=== PATIENT | female | born 1955 | race Caucasian/White ===

== ENCOUNTER 2022-11-01 00:08 | Inpatient (IN) ==
[2022-11-01] MEDS ORDERED: oxyCODONE/Acetamin 5/325 mg TAB PO ONE (00:42)
[2022-11-01 01:50] LABS: ABS Basophils 0.1 10^3/uL (0.0-0.1); ABS Lymphocytes 1.7 10^3/uL (1.0-4.8); ABS Monocytes 0.9 10^3/uL (0.0-0.9); ABS Nucleated RBC 0.01 10^3/ul; Eosinophil % 0.2 %; Hematocrit 43.1 % (35-45); Lymphocyte % 8.2 %; Mean Corpuscular Hemoglobin 29.2 pg (27-33); Mean Corpuscular Hgb Conc 34.7 g/dL (31-36); Mean Corpuscular Volume 84.1 fL (80-97); Mean Platelet Volume 7.4 fL (7.5-11.2); Platelet Count 265 10^3/uL (150-450); Red Blood Count 5.13 10^6/uL (3.63-4.92); Red Cell Distribution Width 13.7 % (12-17); White Blood Count 20.7 10^3/uL (3.8-11.8)
[2022-11-01 02:16] LABS: Albumin 4.3 g/dL (3.2-5.2); Albumin/Globulin Ratio 1.4 (1-3); Calcium 9.9 mg/dL (8.6-10.3); Creatinine, Serum 0.6 mg/dL (0.51-0.95); Globulin 3.1 g/dL (2-4); Potassium 3.5 mmol/L (3.5-5.0); Total Bilirubin 0.5 mg/dL (0.2-1.0); Total Protein 7.4 g/dL (6.4-8.9); eGFR CKD-EPI 99.5 (>60)
[2022-11-01] MEDS ORDERED: Morphine 4 MG/ML VIAL (1 ml) IV ONE (02:26)
[2022-11-01] MEDS ORDERED: Senna TAB 8.6 mg TAB PO PRN (02:50)
[2022-11-01] MEDS ORDERED: Magnesium Hydroxide LIQ 30 ML UDC PO PRN (02:50)
[2022-11-01 03:03] LABS: C Reactive Protein 1.61 mg/L (<8.01)
[2022-11-01 07:14] LABS: ABS Basophils 0.1 10^3/uL (0.0-0.1); ABS Lymphocytes 2.3 10^3/uL (1.0-4.8); ABS Monocytes 0.8 10^3/uL (0.0-0.9); ABS Neutrophils 10.3 10^3/uL (1.5-7.6); ABS Nucleated RBC 0.01 10^3/ul; Eosinophil % 0.1 %; Hematocrit 41.2 % (35-45); Hemoglobin 13.9 g/dL (11.5-14.3); Mean Corpuscular Hemoglobin 28.6 pg (27-33); Mean Corpuscular Hgb Conc 33.8 g/dL (31-36); Mean Corpuscular Volume 84.4 fL (80-97); Mean Platelet Volume 7.5 fL (7.5-11.2); Nucleated Red Blood Cells % 0.1 /100 WBC (0.0-0.4); Platelet Count 265 10^3/uL (150-450); Red Blood Count 4.88 10^6/uL (3.63-4.92); Red Cell Distribution Width 14.2 % (12-17); White Blood Count 13.5 10^3/uL (3.8-11.8)
[2022-11-01 07:31] LABS: Calcium 9.3 mg/dL (8.6-10.3); Creatinine, Serum 0.55 mg/dL (0.51-0.95); Magnesium 1.9 mg/dL (1.9-2.7); Potassium 3.4 mmol/L (3.5-5.0); eGFR CKD-EPI 101.7 (>60)
[2022-11-01] MEDS ORDERED: Potassium Chlor 20 meq TAB.ER PO ONE (07:54)
[2022-11-01 07:57] LABS: Vitamin D Total 25(OH) 15.5 ng/mL (20-50)
[2022-11-01] MEDS: Enoxaparin 40 MG/0.4 ML SYR SUBCUT SCH (12:20)
[2022-11-02] MEDS: Morphine 2 MG/ML SYRINGE IV PRN ×2 (02:19→22:46)
[2022-11-02 07:38] LABS: ABS Eosinophils 0.1 10^3/uL (0.0-0.5); ABS Lymphocytes 2.1 10^3/uL (1.0-4.8); ABS Monocytes 1.1 10^3/uL (0.0-0.9); ABS Neutrophils 8.7 10^3/uL (1.5-7.6); ABS Nucleated RBC 0.02 10^3/ul; Eosinophil % 0.6 %; Hematocrit 45.8 % (35-45); Hemoglobin 15.7 g/dL (11.5-14.3); Lymphocyte % 17.5 %; Mean Corpuscular Hemoglobin 28.7 pg (27-33); Mean Corpuscular Hgb Conc 34.2 g/dL (31-36); Mean Corpuscular Volume 83.8 fL (80-97); Mean Platelet Volume 7.5 fL (7.5-11.2); Nucleated Red Blood Cells % 0.2 /100 WBC (0.0-0.4); Platelet Count 268 10^3/uL (150-450); Red Blood Count 5.47 10^6/uL (3.63-4.92)
[2022-11-02 07:52] LABS: Calcium 9.8 mg/dL (8.6-10.3); Creatinine, Serum 0.57 mg/dL (0.51-0.95); Potassium 3.4 mmol/L (3.5-5.0); eGFR CKD-EPI 100.8 (>60)
[2022-11-02] MEDS ORDERED: Potassium Chlor 20 meq TAB.ER PO ONE (08:06)
[2022-11-02] MEDS: Enoxaparin 40 MG/0.4 ML SYR SUBCUT SCH (13:01)
[2022-11-03 06:18] LABS: ABS Basophils 0.1 10^3/uL (0.0-0.1); ABS Eosinophils 0.1 10^3/uL (0.0-0.5); ABS Lymphocytes 2.3 10^3/uL (1.0-4.8); ABS Monocytes 1.5 10^3/uL (0.0-0.9); ABS Neutrophils 9.7 10^3/uL (1.5-7.6); ABS Nucleated RBC 0.03 10^3/ul; Eosinophil % 0.6 %; Hemoglobin 16.1 g/dL (11.5-14.3); Mean Corpuscular Hemoglobin 28.7 pg (27-33); Mean Corpuscular Hgb Conc 34.3 g/dL (31-36); Mean Corpuscular Volume 83.8 fL (80-97); Mean Platelet Volume 7.5 fL (7.5-11.2); Nucleated Red Blood Cells % 0.2 /100 WBC (0.0-0.4); Platelet Count 278 10^3/uL (150-450); White Blood Count 13.6 10^3/uL (3.8-11.8)
[2022-11-03 06:29] LABS: Creatinine, Serum 0.67 mg/dL (0.51-0.95); Potassium 3.6 mmol/L (3.5-5.0); eGFR CKD-EPI 96.9 (>60)
[2022-11-03 09:23] LABS: Activated Partial Thrombo Time 27.7 seconds (26.0-38.0); INR 1.14 (0.88-1.18)
[2022-11-03] MEDS: D5W 1/2 NS KCl 20 meq 1000 ml 1,000 ML IV SCH (10:44)
[2022-11-03] MEDS ORDERED: Phenylephrine 40 mcg/mL 10mL (400mcg) SYRINGE ONE (10:55)
[2022-11-03] MEDS ORDERED: ceFAZolin 2 GM PREMIX 2 GM/50 ML BAG ONE (11:01)
[2022-11-03] MEDS ORDERED: Midazolam 2 mg/2 ml VIAL 1 mg/ml 2 ml VIAL (2 mg) ONE (11:31)
[2022-11-03] MEDS ORDERED: fentaNYL 100 mcg/2 ml 50 MCG/ML VIAL ONE (11:31)
[2022-11-03] MEDS ORDERED: Bupivacaine 0.5% W/EPI SDV 10 ML VIAL INJ ONE (11:49)
[2022-11-03] MEDS ORDERED: Rocuronium 50 mg VIAL 10 mg/ml 5 ml VIAL (50 mg) ONE (12:12)
[2022-11-03] MEDS ORDERED: Ketamine HCL 50 mg/ml 10 ml VIAL (500 MG) ONE (12:27)
[2022-11-03] MEDS ORDERED: Vancomycin 1,000 MG VIAL ONE (13:10)
[2022-11-03] MEDS ORDERED: Ondansetron 4 mg VIAL 2 MG/ML 2 ml VIAL ONE (13:19)
[2022-11-03] MEDS ORDERED: Propofol 10 MG/ML 20 ML BTL ONE ×2 (14:07→14:49)
[2022-11-03] MEDS ORDERED: Phenylephrine IV 10 MG/ML 1 ml VIAL ONE (14:18)
[2022-11-03] MEDS ORDERED: Glycopyrrolate IV 0.2 MG/ML 1 ML VIAL ONE (14:30)
[2022-11-03] MEDS: Morphine 2 MG/ML SYRINGE IV PRN (20:11)
[2022-11-03] MEDS: ceFAZolin 1 GM X 3 DOSES POST-OP Q8H (AddVan) IVPB SCH (21:10)
[2022-11-04] MEDS: D5W 1/2 NS KCl 20 meq 1000 ml 1,000 ML IV SCH (00:37)
[2022-11-04] MEDS: ceFAZolin 1 GM X 3 DOSES POST-OP Q8H (AddVan) IVPB SCH ×2 (04:50→13:48)
[2022-11-04] MEDS: Morphine 2 MG/ML SYRINGE IV PRN ×2 (06:09→20:26)
[2022-11-04 06:39] LABS: Calcium 9.3 mg/dL (8.6-10.3); Creatinine, Serum 0.59 mg/dL (0.51-0.95); Potassium 4.3 mmol/L (3.5-5.0)
[2022-11-04 06:52] LABS: Hematocrit 41.5 % (35-45); Hemoglobin 14.1 g/dL (11.5-14.3); Mean Corpuscular Hemoglobin 28.7 pg (27-33); Mean Corpuscular Hgb Conc 33.9 g/dL (31-36); Mean Corpuscular Volume 84.5 fL (80-97); Platelet Count 261 10^3/uL (150-450); Red Blood Count 4.91 10^6/uL (3.63-4.92); Red Cell Distribution Width 13.6 % (12-17); White Blood Count 14.5 10^3/uL (3.8-11.8)
[2022-11-04 06:53] LABS: ABS Lymphocytes 1.6 10^3/uL (1.0-4.8); ABS Neutrophils 10.8 10^3/uL (1.5-7.6); ABS Nucleated RBC 0.02 10^3/ul; Eosinophil % 0.2 %; Lymphocyte % 11.4 %; Nucleated Red Blood Cells % 0.1 /100 WBC (0.0-0.4)
[2022-11-04] MEDS: Enoxaparin 40 MG/0.4 ML SYR SUBCUT SCH (08:55)
[2022-11-04] MEDS: Polyethylene Glycol 3350 17 GM PACKET PO SCH (11:44)
[2022-11-05 06:16] LABS: Hematocrit 39.9 % (35-45); Mean Corpuscular Hemoglobin 29.7 pg (27-33); Mean Corpuscular Hgb Conc 35.2 g/dL (31-36); Mean Corpuscular Volume 84.4 fL (80-97); Platelet Count 266 10^3/uL (150-450); Red Blood Count 4.73 10^6/uL (3.63-4.92); White Blood Count 12.5 10^3/uL (3.8-11.8)
[2022-11-05 06:19] LABS: ABS Eosinophils 0.1 10^3/uL (0.0-0.5); ABS Lymphocytes 2.3 10^3/uL (1.0-4.8); ABS Monocytes 1.7 10^3/uL (0.0-0.9); ABS Neutrophils 8.3 10^3/uL (1.5-7.6); ABS Nucleated RBC 0.02 10^3/ul; Lymphocyte % 18.4 %; Nucleated Red Blood Cells % 0.2 /100 WBC (0.0-0.4)
[2022-11-05 06:35] LABS: Calcium 9.4 mg/dL (8.6-10.3); Creatinine, Serum 0.52 mg/dL (0.51-0.95); Potassium 3.7 mmol/L (3.5-5.0)
[2022-11-05] MEDS: Polyethylene Glycol 3350 17 GM PACKET PO SCH (09:45)
[2022-11-05] MEDS: Enoxaparin 40 MG/0.4 ML SYR SUBCUT SCH (09:46)
[2022-11-05] MEDS: Senna TAB 8.6 mg TAB PO SCH (21:11)
[2022-11-06] MEDS: Enoxaparin 40 MG/0.4 ML SYR SUBCUT SCH (08:39)
[2022-11-06] MEDS: Polyethylene Glycol 3350 17 GM PACKET PO SCH (08:39)
[2022-11-06] MEDS: Senna TAB 8.6 mg TAB PO SCH (21:46)
[2022-11-07] MEDS: Polyethylene Glycol 3350 17 GM PACKET PO SCH (09:09)
[2022-11-07] MEDS: Enoxaparin 40 MG/0.4 ML SYR SUBCUT SCH (09:09)
[2022-11-07] MEDS: Senna TAB 8.6 mg TAB PO SCH (21:46)
[2022-11-08 07:10] LABS: Hematocrit 37.1 % (35-45); Hemoglobin 12.8 g/dL (11.5-14.3); Mean Corpuscular Hemoglobin 28.7 pg (27-33); Mean Corpuscular Hgb Conc 34.7 g/dL (31-36); Mean Corpuscular Volume 82.7 fL (80-97); Mean Platelet Volume 7.2 fL (7.5-11.2); Platelet Count 395 10^3/uL (150-450); Red Blood Count 4.48 10^6/uL (3.63-4.92); Red Cell Distribution Width 13.6 % (12-17); White Blood Count 9.9 10^3/uL (3.8-11.8)
[2022-11-08 07:26] LABS: Calcium 9.7 mg/dL (8.6-10.3); Creatinine, Serum 0.49 mg/dL (0.51-0.95); Potassium 3.7 mmol/L (3.5-5.0); eGFR CKD-EPI 104.5 (>60)
[2022-11-08] MEDS: Enoxaparin 40 MG/0.4 ML SYR SUBCUT SCH (08:06)
[2022-11-08] MEDS: Polyethylene Glycol 3350 17 GM PACKET PO SCH (08:06)
[2022-11-08] MEDS: Senna TAB 8.6 mg TAB PO SCH (22:27)
[2022-11-09] MEDS: Polyethylene Glycol 3350 17 GM PACKET PO SCH (08:58)
[2022-11-09] MEDS: Enoxaparin 40 MG/0.4 ML SYR SUBCUT SCH (08:59)
[2022-11-09 11:49] VITALS: BP 118/79
== END 2022-11-09 14:15 | DRG 301 ==
LOC: ED 00:08 → SUATTDRO 02:41 → EDHOLD 02:41 → SSU 04:35
PROVIDERS: ADMIT Student in an Organized Health Care Education/Training Program; ATTEND Student in an Organized Health Care Education/Training Program

== ENCOUNTER 2022-11-09 12:01 | Inpatient (IN) ==
[~2022-11-09 12:01] MED LIST: Al Hydrox/Mg Hydrox/Simet LIQ 30 ML UDC PO PRN; Enoxaparin 40 MG/0.4 ML SYR SUBCUT SCH; Magnesium Hydroxide LIQ 30 ML UDC PO PRN; Senna TAB 8.6 mg TAB PO PRN
[2022-11-09] MEDS: Senna TAB 8.6 mg TAB PO SCH (20:23)
[2022-11-10 06:19] LABS: ABS Basophils 0.1 10^3/uL (0.0-0.1); ABS Eosinophils 0.2 10^3/uL (0.0-0.5); ABS Lymphocytes 2.8 10^3/uL (1.0-4.8); ABS Monocytes 0.9 10^3/uL (0.0-0.9); ABS Nucleated RBC 0.01 10^3/ul; Eosinophil % 2.4 %; Hematocrit 36.7 % (35-45); Hemoglobin 12.9 g/dL (11.5-14.3); Lymphocyte % 31.2 %; Mean Corpuscular Hemoglobin 28.9 pg (27-33); Mean Corpuscular Volume 82.6 fL (80-97); Mean Platelet Volume 6.8 fL (7.5-11.2); Nucleated Red Blood Cells % 0.1 /100 WBC (0.0-0.4); Platelet Count 455 10^3/uL (150-450); Red Blood Count 4.45 10^6/uL (3.63-4.92); Red Cell Distribution Width 13.6 % (12-17)
[2022-11-10 06:41] LABS: Albumin 3.4 g/dL (3.2-5.2); Albumin/Globulin Ratio 1.1 (1-3); Calcium 9.8 mg/dL (8.6-10.3); Creatinine, Serum 0.58 mg/dL (0.51-0.95); Globulin 3.1 g/dL (2-4); Potassium 4.1 mmol/L (3.5-5.0); Total Bilirubin 0.6 mg/dL (0.2-1.0); Total Protein 6.5 g/dL (6.4-8.9); eGFR CKD-EPI 100.4 (>60)
[2022-11-10] MEDS: Enoxaparin 40 MG/0.4 ML SYR SUBCUT SCH (08:42)
[2022-11-10] MEDS: Polyethylene Glycol 3350 17 GM PACKET PO SCH (08:47)
[2022-11-10] MEDS: Senna TAB 8.6 mg TAB PO SCH (19:00)
[2022-11-11] MEDS: Enoxaparin 40 MG/0.4 ML SYR SUBCUT SCH (08:21)
[2022-11-11] MEDS: Polyethylene Glycol 3350 17 GM PACKET PO SCH (08:26)
[2022-11-11] MEDS: Senna TAB 8.6 mg TAB PO SCH (21:51)
[2022-11-12] MEDS: Enoxaparin 40 MG/0.4 ML SYR SUBCUT SCH (08:22)
[2022-11-12] MEDS: Polyethylene Glycol 3350 17 GM PACKET PO SCH (08:24)
[2022-11-12] MEDS: Senna TAB 8.6 mg TAB PO SCH (22:37)
[2022-11-13] MEDS: Enoxaparin 40 MG/0.4 ML SYR SUBCUT SCH (10:25)
[2022-11-13] MEDS: Polyethylene Glycol 3350 17 GM PACKET PO SCH (10:25)
[2022-11-13] MEDS: Senna TAB 8.6 mg TAB PO SCH (21:45)
[2022-11-14] MEDS: Polyethylene Glycol 3350 17 GM PACKET PO SCH (08:44)
[2022-11-14] MEDS: Enoxaparin 40 MG/0.4 ML SYR SUBCUT SCH (08:44)
[2022-11-14] MEDS: Senna TAB 8.6 mg TAB PO SCH (21:37)
[2022-11-15 06:14] VITALS: BP 112/70
[2022-11-15] MEDS: Enoxaparin 40 MG/0.4 ML SYR SUBCUT SCH (09:14)
[2022-11-15] MEDS: Polyethylene Glycol 3350 17 GM PACKET PO SCH (09:15)
== END 2022-11-15 12:00 | disposition home or self-care (01) | DRG 860 ==
LOC: PMRU 14:17
PROVIDERS: ADMIT Physical Medicine & Rehabilitation; ATTEND Physical Medicine & Rehabilitation